=== PATIENT | female | born 1985 ===

== ENCOUNTER 2024-08-09 21:36 | Emergency (ER) | payer OTHER ==
[~2024-08-09] VITALS: Ht 172.7 cm; Wt 54.4 kg
[2024-08-09 22:54] LABS: BASOPHILS % (AUTO) 0.3 % (0.0-2.0); HEMATOCRIT 31.5 % (31.2-41.9); HEMOGLOBIN 10.6 g/dL (10.9-14.3); LYMPHOCYTES # (AUTO) 0.6 K/uL (0.8-4.8); LYMPHOCYTES % (AUTO) 4.5 % (20.5-51.5); MEAN CORPUSCULAR HEMOGLOBIN 28.8 uug (24.7-32.8); MEAN CORPUSCULAR HGB CONC 34 g/dL (32.3-35.6); MEAN CORPUSCULAR VOLUME 85.8 fL (75.5-95.3); MONOCYTES # (AUTO) 0.8 K/uL (0.1-1.30); MONOCYTES % (AUTO) 6.3 % (0.0-11.0); NEUTROPHILS # (AUTO) 11.4 K/uL (1.8-8.9); NEUTROPHILS % (AUTO) 88.9 % (38.5-71.5); PLATELET COUNT (AUTO) 363 K/uL (179-408); RED BLOOD CELL COUNT(AUTO) 3.67 MIL/uL (3.63-4.92); WHITE BLOOD COUNT (AUTO) 12.9 K/uL (3.8-11.8)
[2024-08-09 23:02] LABS: CALCIUM 8.8 mg/dL (8.5-10.1); CARBON DIOXIDE 28 mmol/L (21-32); CHLORIDE 99 mmol/L (98-107); CREATININE 0.8 mg/dL (0.6-1.3); GLUCOSE 153 mg/dL (74-106); POTASSIUM 4.2 mmol/L (3.5-5.1); SODIUM SERUM 137 mmol/L (136-145); UREA NITROGEN, BLOOD 18 mg/dL (7-18)
[2024-08-09] MEDS: IV NORMAL SALINE 1000 ML BAG IV ONE (23:02)
[2024-08-09] MEDS ORDERED: ONDANSETRON 4 MG/2 ML VIAL ONE (23:03)
[2024-08-09 23:06] LABS: DIFFERENTIAL COMMENT 1
[2024-08-09] MEDS: ONDANSETRON 4 MG/2 ML VIAL IV ONE (23:06)
[2024-08-09] MEDS ORDERED: HYDROMORPHONE 1 MG/1 ML DISP.SYRIN ONE (23:08)
[2024-08-09 23:11] LABS: ALANINE AMINOTRANSFERASE 154 U/L (14-59); ALBUMIN 2.8 g/dL (3.4-5.0); ALKALINE PHOSPHATASE 293 U/L (50-136); ASPARTATE AMINOTRANSFERASE 164 U/L (15-37); BILIRUBIN,DIRECT 0.3 mg/dL (0.0-0.2); BILIRUBIN,TOTAL 0.6 mg/dL (0.2-1.0); TOTAL PROTEIN, SERUM 8.7 g/dL (6.4-8.2)
[2024-08-09 23:15] LABS: THYROID STIMULATING HORMONE 0.751 mIU/mL (0.358-3.740)
[2024-08-09] MEDS: HYDROMORPHONE 1 MG/1 ML DISP.SYRIN IV ONE (23:18)
[2024-08-10] MEDS: IV NORMAL SALINE 1000 ML BAG IV ONE (01:45)
[2024-08-10] MEDS: HYDROMORPHONE 1 MG/1 ML DISP.SYRIN IV ONE (01:50)
[2024-08-10] MEDS ORDERED: HYDROMORPHONE 1 MG/1 ML DISP.SYRIN ONE (02:04)
[2024-08-10] MEDS ORDERED: CYCL10TA9 PO (02:16)
[2024-08-10] MEDS ORDERED: ONDA4TAB11 PO (02:16)
[2024-08-10] MEDS ORDERED: HYDR-3980 PO (02:16)
[2024-08-10 03:08] VITALS: BP 105/61; TEMP 98; O2SAT 100
== END 2024-08-10 03:08 | disposition home or self-care (01) ==
LOC: ER 21:51
DX: R55 Syncope and collapse (principal); R40.4 Transient alteration of awareness; R11.2 Nausea with vomiting, unspecified; R00.0 Tachycardia, unspecified; I95.9 Hypotension, unspecified; I21.9 Acute myocardial infarction, unspecified; J45.909 Unspecified asthma, uncomplicated; J90 Pleural effusion, not elsewhere classified; Z88.7 Allergy status to serum and vaccine
CPT/HCPCS: 99285; 96374; 72125; 76705; 71045; 96361; 96375; 80076; 80048; 83690; 84443; 85025; 84484 ×3; 36415 ×2; 93005; 96376; J2405; J1171 ×2; J7040 ×2